=== PATIENT | female | born 1980 | race Caucasian/White ===

== ENCOUNTER 2021-06-07 15:09 | Emergency (ER) | payer OTHER ==
--- NOTE | 2021-06-07 15:35 | ERPHSYRPT ---
- History of Present Illness Time Seen by Provider: 06/07/21 15:25 Source: patient Exam Limitations: no limitations Patient Subjective Stated Complaint: Right foot injury Triage Nursing Assessment: Patient ambulated back to ED and transferred self to bed. Patient A+O X3. Patient's skin pink, warm and dry. Patient complains of right foot pain after tripping and twisting her right foot in a small hole. Patient complains of constant aching 8/10 and when ambulating 10/10. Bruising noted right side of foot. Physician History: Patient is a 41-year-old white female who was at a [email or web address] when she stepped in a hole causing an injury to her right foot. She complains of pain in the right foot lateral aspect she denies any pain in the ankle at all the pain is greater with weightbearing. Initially she was able to walk and bear weight without pain but it has increased over time. Method of Injury: fell Occurred: just prior to arrival Quality: constant Severity of Pain-Max: moderate Severity of Pain-Current: moderate Lower Extremities Pain: foot: right Modifying Factors: Improves With: movement Allergies/Adverse Reactions: No Known Drug Allergies Allergy (Unverified 06/07/21 15:16) Hx Influenza Vaccination/Date Given: Yes Hx Pneumococcal Vaccination/Date Given: No Immunizations Up to Date: Yes Travel Risk - International Travel Have you traveled outside of the country in past 3 weeks: No - Coronavirus Screening Are you exhibiting any of the following symptoms?: No Close contact with a COVID-19 positive Pt in past 14-21 Days: No - Vaccine Status Have you recieved a Covid-19 vaccination: Yes 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: [employer] - Vaccination Dates Date of 2cond Vaccination (if applicable): September 2020 - Review of Systems Constitutional: No Fever, No Chills Eyes: No Symptoms Ears, Nose, & Throat: No Symptoms Respiratory: No Cough, No Dyspnea Cardiac: No Chest Pain, No Edema, No Syncope Abdominal/Gastrointestinal: No Abdominal Pain, No Nausea, No Vomiting, No Diarrhea Genitourinary Symptoms: No Dysuria Musculoskeletal: Joint Pain, No Back Pain, No Neck Pain Skin: No Rash Neurological: No Dizziness, No Focal Weakness, No Sensory Changes Psychological: No Symptoms Endocrine: No Symptoms All Other Systems: Reviewed and Negative - Past Medical History Pertinent Past Medical History: Yes Neurological History: Migraines Respiratory History: Asthma GI Medical History: GERD Other Medical History: PCOS, Pre diabetic - Past Surgical History Past Surgical History: Yes Neuro Surgical History: No Pertinent History Cardiac: No Pertinent History Respiratory: No Pertinent History Gastrointestinal: Cholecystectomy Genitourinary: No Pertinent History Musculoskeletal: No Pertinent History Female Surgical History: Hysterectomy Other Surgical History: sinus surgery - Social History Smoking Status: Never smoker Exposure to second hand smoke: Yes Drug Use: none Patient Lives Alone: No - Female History Hx Last Menstrual Period: hysterectomy Hx Now: No - Nursing Vital Signs Nursing Vital Signs: Initial Vital Signs Temperature 98.7 F 06/07/21 15:17 Pulse Rate 114 H 06/07/21 15:17 Respiratory Rate 18 06/07/21 15:17 Blood Pressure 168/113 06/07/21 15:17 O2 Sat by Pulse Oximetry 100 06/07/21 15:17 Pain Scale Pain Intensity 8 - Physical Exam General Appearance: alert Eyes, Ears, Nose, Throat Exam: moist mucous membranes Neck Exam: non-tender, supple Back Exam: normal inspection, normal range of motion, No vertebral tenderness Hips Exam: bilateral: non-tender, normal inspection, normal range of motion, no evidence of injury Legs Exam: bilateral leg: non-tender, normal inspection, normal range of motion, no evidence of injury Knees Exam: bilateral knee: non-tender, normal inspection, normal range of motion, no evidence of injury Ankle Exam: bilateral ankle: non-tender, normal inspection, normal range of motion, no evidence of injury Foot Exam: right foot: limited range of motion, pain, soft tissue tenderness, swelling, left foot: non-tender, normal inspection, normal range of motion, no evidence of injury Neuro/Tendon Exam: normal sensation, normal motor functions Mental Status Exam: alert, oriented x 3, cooperative Skin Exam: normal color, warm, dry SpO2 Interpretation: normal SpO2: 100 O2 Delivery: Room Air - Course Nursing assessment & vital signs reviewed: Yes - Radiology Exams Right Foot X-ray Interpretation: Interpreted by me, Other (Fracture of the lateral distal calcaneus) Ordered Tests: Active Orders 24 hr Category Date Time Status FOOT (MINIMUM 3 VIEWS) Stat Exams 06/07/21 15:19 Ordered - Departure Departure Disposition: Home Clinical Impression: Nondisplaced fracture of calcaneus Condition: Stable Critical Care Time: No Instructions: Foot Fracture (DC) Prescriptions: Hydrocodone/Acetaminophen [Hydrocodone-Acetamin 5-325 mg] 1 tab PO Q6HPRN PRN 3 Days #12 tablet MDD 4 PRN Reason: Pain
--- NOTE | 2021-06-07 20:40 | XRAY ---
Indication: Pain and injury. Comparison: None 3 nonweightbearing views right foot demonstrates small posterior/tiny plantar heel spurs and tiny talonavicular accessory ossicle. No other bony, articular, or soft tissue abnormalities.
== END 2021-06-07 16:23 | disposition home or self-care (01) ==
LOC: ED 15:09
DX: S92.001A Unspecified fracture of right calcaneus, initial encounter for closed fracture (principal); X50.1XXA Overexertion from prolonged static or awkward postures, initial encounter; Y92.512 Supermarket, store or market as the place of occurrence of the external cause
CPT/HCPCS: 73630; 99284; L4386